=== PATIENT | male | born 1990 | race Asian ===

== ENCOUNTER 2017-04-01 22:32 | Emergency (ER) | payer OTHER ==
[~2017-04-01] VITALS: Ht 180.3 cm; Wt 83.5 kg
[2017-04-01 22:43] VITALS: BP 135/71; TEMP 97.9
== END 2017-04-01 23:05 | disposition home or self-care (01) ==
LOC: ED 22:32
DX: R11.2 Nausea with vomiting, unspecified (principal); R19.7 Diarrhea, unspecified; R10.9 Unspecified abdominal pain
CPT/HCPCS: 99281

== ENCOUNTER 2017-12-19 00:33 | Emergency (ER) | payer OTHER ==
[~2017-12-19] VITALS: Ht 180.3 cm; Wt 97.5 kg
[2017-12-19 00:58] VITALS: BP 147/70; TEMP 98.2
== END 2017-12-19 01:24 | disposition home or self-care (01) ==
LOC: ED 00:33
DX: L03.011 Cellulitis of right finger (principal)
CPT/HCPCS: 99281

== ENCOUNTER 2018-01-31 07:02 | Emergency (ER) | payer OTHER ==
[~2018-01-31] VITALS: Ht 180.3 cm; Wt 93.0 kg
[2018-01-31 07:10] VITALS: BP 127/73; TEMP 98.8
== END 2018-01-31 08:38 | disposition home or self-care (01) ==
LOC: ED 07:02
DX: S22.31XA Fracture of one rib, right side, initial encounter for closed fracture (principal)
CPT/HCPCS: 96372; 99282; J1885

== ENCOUNTER 2019-07-07 03:56 | Emergency (ER) | payer OTHER ==
[~2019-07-07] VITALS: Ht 180.3 cm; Wt 108.4 kg
[2019-07-07 04:45] VITALS: BP 151/89; TEMP 98.1
== END 2019-07-07 04:45 | disposition home or self-care (01) ==
LOC: ED 03:56
DX: K01.1 Impacted teeth (principal); K04.7 Periapical abscess without sinus; F17.210 Nicotine dependence, cigarettes, uncomplicated
CPT/HCPCS: 99282

== ENCOUNTER 2019-08-23 00:33 | Emergency (ER) | payer OTHER ==
[~2019-08-23] VITALS: Ht 180.3 cm; Wt 106.6 kg
[2019-08-23 01:26] VITALS: BP 164/98; TEMP 98.2
== END 2019-08-23 01:26 | disposition home or self-care (01) ==
LOC: ED 00:33
DX: S02.5XXA Fracture of tooth (traumatic), initial encounter for closed fracture (principal); K02.9 Dental caries, unspecified; F17.210 Nicotine dependence, cigarettes, uncomplicated
CPT/HCPCS: 96372; 99282; J1885

== ENCOUNTER 2022-04-18 12:44 | Emergency (ER) | payer OTHER ==
[~2022-04-18] VITALS: Ht 180.3 cm; Wt 109.3 kg
[2022-04-18 14:00] VITALS: BP 128/72; TEMP 98.4
== END 2022-04-18 14:00 | disposition home or self-care (01) ==
LOC: ED 12:44
DX: L03.315 Cellulitis of perineum (principal); L02.215 Cutaneous abscess of perineum
CPT/HCPCS: 96372; 99283; J0696; J1885

== ENCOUNTER 2022-10-12 12:38 | Emergency (ER) | payer OTHER ==
[~2022-10-12] VITALS: Ht 180.3 cm; Wt 106.6 kg
[2022-10-12 12:40] VITALS: BP 114/57; TEMP 98.2
[2022-10-12 13:10] LABS: PLATELET COUNT 177 K/uL (142-355)
== END 2022-10-12 14:16 | disposition home or self-care (01) ==
LOC: ED 12:38
PROVIDERS: Emergency Medicine Emergency Medical Services
DX: R07.89 Other chest pain (principal)
CPT/HCPCS: 80053; 83735; 84484; 85027; 93005; 99283

== ENCOUNTER 2022-12-04 18:56 | Emergency (ER) | payer OTHER ==
[~2022-12-04] VITALS: Ht 180.3 cm; Wt 108.9 kg
[2022-12-04 18:56] VITALS: BP 141/87; TEMP 98.6
== END 2022-12-04 20:10 | disposition home or self-care (01) ==
LOC: ED 18:56
DX: R51.9 Headache, unspecified (principal); R09.81 Nasal congestion; Z20.822 Contact with and (suspected) exposure to COVID-19
CPT/HCPCS: 87635; 99282; U0003